=== PATIENT | male | born 1960 | race Caucasian/White ===

== ENCOUNTER 2020-03-17 09:00 | Outpatient (CLI) | payer OTHER | END 2020-03-17 23:59 | disposition home or self-care (01) | LOC: PETCFH 09:00 | PROVIDERS: ATTEND Internal Medicine Hematology & Oncology | DX: R91.1 Solitary pulmonary nodule (principal); Z85.828 Personal history of other malignant neoplasm of skin | CPT/HCPCS: 78815; A9552 ==